=== PATIENT | female | born 1965 | race Caucasian/White ===

== ENCOUNTER 2017-11-23 06:02 | Inpatient (IN) | payer BC ==
[~2017-11-23] VITALS: Ht 160 cm; Wt 122.7 kg
[2017-11-23] MEDS ORDERED: GENTAMICIN 80 MG/2 ML ONE ×2 (06:14→08:10)
[2017-11-23] MEDS ORDERED: BUPIVACAINE/PF 0.25% ONE (06:14)
[2017-11-23] MEDS ORDERED: LIDOCAINE 1%, 50ML ONE (06:14)
[2017-11-23] MEDS ORDERED: morphine SULFATE/PF 0.5 MG/ML, 10ML ONE (06:15)
[2017-11-23] MEDS ORDERED: THROMBIN 5,000 UNIT VIAL TP ONE (06:15)
[2017-11-23] MEDS ORDERED: VANCOMYCIN 1,000 MG ONE (06:15)
[2017-11-23] MEDS ORDERED: EPINEPHRINE 1 MG/ML, 1ML ONE (06:15)
[2017-11-23] MEDS ORDERED: BACITRACIN 50,000 UNIT ONE (06:15)
[2017-11-23] MEDS ORDERED: LACTATED RINGERS 1,000 ML IV SCH (06:51)
[2017-11-23 07:00] VITALS: BP 129/78
[2017-11-23] MEDS ORDERED: metformin PO (07:00)
[2017-11-23] MEDS ORDERED: GABA600T2 PO (07:00)
[2017-11-23] MEDS ORDERED: FENO160T PO (07:00)
[2017-11-23] MEDS ORDERED: DULO30CA2 PO (07:00)
[2017-11-23] MEDS ORDERED: iron PO (07:00)
[2017-11-23] MEDS ORDERED: LIDOCAINE-MPF 1%, 2ML INFIL ONE (07:00)
[2017-11-23] MEDS ORDERED: TRAM200T17 PO (07:00)
[2017-11-23] MEDS ORDERED: nephrovite PO (07:00)
[2017-11-23] MEDS ORDERED: OXYC-302 PO (07:00)
[2017-11-23] MEDS ORDERED: GLIM4TAB2 PO (07:00)
[2017-11-23] MEDS ORDERED: FENTANYL PF 250 MCG/5ML ONE ×2 (07:10→08:44)
[2017-11-23] MEDS ORDERED: MIDAZOLAM 1 MG/ML, 2ML ONE (07:10)
[2017-11-23] MEDS ORDERED: CEFAZOLIN 1,000 MG ONE (07:59)
[2017-11-23] MEDS ORDERED: SUCCINYLCHOLINE 20 MG/ML, 10ML ONE (07:59)
[2017-11-23] MEDS ORDERED: ROCURONIUM 10 MG/ML,10ML ONE (07:59)
[2017-11-23] MEDS ORDERED: ONDANSETRON 2MG/ML, 2ML ONE (07:59)
[2017-11-23] MEDS ORDERED: PROPOFOL 10 MG/ML, 20ML ONE (07:59)
[2017-11-23] MEDS ORDERED: DEXAMETHASONE 4 MG/ML, 1ML ONE (07:59)
[2017-11-23] MEDS ORDERED: HEPARIN 1,000 UNITS/ML, 30ML ONE (08:05)
[2017-11-23] MEDS ORDERED: ALBUTEROL/IPRATROPIUM 2.5MG/0.5MG, 3 ML NPPB PRN (09:30)
[2017-11-23] MEDS ORDERED: ALBUTEROL SULFATE 2.5 MG/3 ML NPPB PRN (09:30)
[2017-11-23] MEDS ORDERED: morphine SULFATE 10 MG/ML, 1ML IV PRN (09:30)
[2017-11-23] MEDS ORDERED: HYDROcodone/APAP 7.5-325MG/15ML UDC PO PRN (09:30)
[2017-11-23] MEDS ORDERED: HYDROmorphone 1 MG/ML, 1ML IV PRN (09:30)
[2017-11-23] MEDS ORDERED: FENTANYL PF 100 MCG/2ML IV PRN (09:30)
[2017-11-23] MEDS ORDERED: hydrALAzine 20 MG/ML, 1ML IV PRN (09:30)
[2017-11-23] MEDS ORDERED: PROMETHAZINE 25 MG/ML, 1ML IV PRN (09:30)
[2017-11-23] MEDS ORDERED: ONDANSETRON 2MG/ML, 2ML IVPush PRN (09:30)
[2017-11-23] MEDS ORDERED: LABETALOL 5MG/ML, 20ML IV PRN (09:30)
[2017-11-23] MEDS ORDERED: METOCLOPRAMIDE 5 MG/ML, 2ML IV PRN (09:30)
[2017-11-23] MEDS ORDERED: MEPERIDINE/PF 25MG/0.5ML IVPush PRN (09:30)
[2017-11-23] MEDS ORDERED: FENTANYL PF 100 MCG/2ML ONE ×2 (11:19→12:40)
[2017-11-23] MEDS ORDERED: FENTANYL PF 100 MCG/2ML IM ONE (11:25)
[2017-11-23] MEDS ORDERED: HYDROmorphone 2 MG/ML, 1ML ONE (12:40)
[2017-11-23] MEDS ORDERED: OXYcodone 5 MG/5 ML ORAL.SOL UDC ONE (12:40)
[2017-11-23 14:20] VITALS: BP 110/73
[2017-11-23] MEDS ORDERED: PROMETHAZINE 25 MG SUPP PR PRN (14:30)
[2017-11-23] MEDS ORDERED: BISACODYL 10 MG SUPP PR PRN (15:00)
[2017-11-23] MEDS ORDERED: DIAZEPAM 5 MG TABLET PO PRN (15:00)
[2017-11-23] MEDS ORDERED: DIAZEPAM 5 MG/ML, 2ML IV PRN (15:00)
[2017-11-23] MEDS ORDERED: HYDROmorphone 2 MG/ML, 1ML IM PRN (15:00)
[2017-11-23] MEDS ORDERED: DIPHENHYDRAMINE 50 MG/ML, 1ML IVPush PRN (15:00)
[2017-11-23] MEDS ORDERED: DIPHENHYDRAMINE 50 MG/ML, 1ML IM PRN (15:00)
[2017-11-23] MEDS ORDERED: D5%-0.9% NACL+KCL 20MEQ 1,000 ML IV SCH (15:00)
[2017-11-23] MEDS ORDERED: MAGNESIUM HYDROXIDE 8%, 30ML UDC PO PRN (15:00)
[2017-11-23] MEDS ORDERED: DIPHENHYDRAMINE 50 MG CAPSULE PO PRN (15:00)
[2017-11-23] MEDS ORDERED: PROMETHAZINE 25 MG/ML, 1ML IM PRN (15:00)
[2017-11-23] MEDS: ACETAMINOPHEN 500 MG TABLET PO SCH ×2 (16:18→20:52)
[2017-11-23] MEDS: CEFAZOLIN PMX 1GM/50ML 50 ML IVPB SCH ×2 (16:18→23:41)
[2017-11-23] MEDS ORDERED: MORPHINE 30MG/30ML PCA.SYR IV PRN (17:30)
[2017-11-23] MEDS: OXYcodone IR 5MG TABLET PO PRN ×2 (17:49→22:30)
[2017-11-23] MEDS ORDERED: INSULIN ASPART 100 UNITS/ML, VIAL SQ-INSULIN ONE (18:00)
[2017-11-23] MEDS: NS + 20MEQ KCL 1,000 ML IV SCH (18:15)
[2017-11-23] MEDS ORDERED: INSULIN LISPRO 100 UNITS/ML, PEN SQ-INSULIN ONE (18:30)
[2017-11-23 20:05] VITALS: BP 100/58
[2017-11-23] MEDS: GABAPENTIN 300 MG CAPSULE PO SCH (20:52)
[2017-11-24 00:16] VITALS: BP 97/64
[2017-11-24] MEDS: NS + 20MEQ KCL 1,000 ML IV SCH ×3 (02:19→15:57)
[2017-11-24 05:24] VITALS: BP 101/65
[2017-11-24] MEDS: OXYcodone IR 5MG TABLET PO PRN ×2 (07:12→22:00)
[2017-11-24] MEDS: GABAPENTIN 300 MG CAPSULE PO SCH ×3 (08:00→21:21)
[2017-11-24] MEDS: CEFAZOLIN PMX 1GM/50ML 50 ML IVPB SCH ×2 (08:00→15:49)
[2017-11-24] MEDS: DULOXETINE 30 MG CAPSULE.DR PO SCH (08:00)
[2017-11-24] MEDS: SENNA/DOCUSATE TABLET PO SCH (08:01)
[2017-11-24] MEDS: ACETAMINOPHEN 500 MG TABLET PO SCH ×3 (08:01→21:21)
[2017-11-24 08:12] VITALS: BP 119/74
[2017-11-24 14:34] VITALS: BP 126/76
[2017-11-24] MEDS ORDERED: INSULIN LISPRO 100 UNITS/ML, PEN SQ-INSULIN ONE (17:00)
[2017-11-24] MEDS ORDERED: INSULIN ASPART 100 UNITS/ML, VIAL SQ-INSULIN ONE (17:00)
[2017-11-24 18:28] VITALS: BP 107/63
[2017-11-25] MEDS: CEFAZOLIN PMX 1GM/50ML 50 ML IVPB SCH ×3 (00:10→17:03)
[2017-11-25 01:25] VITALS: BP 122/77
[2017-11-25] MEDS: NS + 20MEQ KCL 1,000 ML IV SCH ×3 (02:34→18:00)
[2017-11-25] MEDS: DULOXETINE 30 MG CAPSULE.DR PO SCH (07:18)
[2017-11-25] MEDS: ACETAMINOPHEN 500 MG TABLET PO SCH ×3 (07:18→20:53)
[2017-11-25] MEDS: GABAPENTIN 300 MG CAPSULE PO SCH ×3 (07:18→20:54)
[2017-11-25] MEDS: SENNA/DOCUSATE TABLET PO SCH (07:19)
[2017-11-25] MEDS ORDERED: metFORMIN 500 MG TABLET PO SCH (08:00)
[2017-11-25 08:59] VITALS: BP 124/81
[2017-11-25] MEDS ORDERED: INSULIN LISPRO 100 UNITS/ML, PEN SQ-INSULIN ONE ×2 (12:00→22:30)
[2017-11-25 14:03] VITALS: BP 111/72
[2017-11-25] MEDS: metFORMIN 500 MG TABLET PO SCH (17:03)
[2017-11-25 20:12] VITALS: BP 121/80
[2017-11-25] MEDS ORDERED: FENOFIBRATE 145 MG TABLET PO SCH (21:00)
[2017-11-25] MEDS ORDERED: FERROUS SULFATE 325 MG TABLET PO SCH (21:00)
[2017-11-26] MEDS: CEFAZOLIN 1,000 MG in DEXTROSE 5% 50 ML IVPB SCH ×4 (00:37→16:00)
[2017-11-26 01:51] VITALS: BP 123/68
[2017-11-26] MEDS ORDERED: GABAPENTIN 300 MG CAPSULE PO ONE (02:00)
[2017-11-26] MEDS: NS + 20MEQ KCL 1,000 ML IV SCH ×2 (03:22→10:00)
[2017-11-26] MEDS: metFORMIN 500 MG TABLET PO SCH ×2 (07:52→16:43)
[2017-11-26] MEDS: OXYcodone IR 5MG TABLET PO PRN ×4 (07:55→16:40)
[2017-11-26 08:21] VITALS: BP 107/67
[2017-11-26] MEDS: ACETAMINOPHEN 500 MG TABLET PO SCH ×2 (08:43→16:03)
[2017-11-26] MEDS: SENNA/DOCUSATE TABLET PO SCH (08:43)
[2017-11-26] MEDS: GABAPENTIN 300 MG CAPSULE PO SCH ×2 (08:44→16:03)
[2017-11-26] MEDS: DULOXETINE 30 MG CAPSULE.DR PO SCH (08:44)
[2017-11-26] MEDS ORDERED: INSULIN LISPRO 100 UNITS/ML, PEN SQ-INSULIN ONE (11:00)
[2017-11-26] MEDS ORDERED: INSULIN LISPRO 100 UNITS/ML, PEN SQ-INSULIN SCH (11:30)
[2017-11-26 13:42] VITALS: BP 112/75
== END 2017-11-26 16:55 | disposition home or self-care (01) | DRG 516 ==
LOC: ORIP 06:02 → 4NOR 14:10
PROVIDERS: ADMIT Orthopaedic Surgery Orthopaedic Surgery of the Spine; ATTEND Orthopaedic Surgery Orthopaedic Surgery of the Spine
PROC: 0SH304Z Insertion of Internal Fixation Device into Lumbosacral Joint, Open Approach (ICD-10-PCS; 2017-11-23)
PROC: 0SH004Z Insertion of Internal Fixation Device into Lumbar Vertebral Joint, Open Approach (ICD-10-PCS; principal; 2017-11-23 07:30)
DX: M48.061 Spinal stenosis, lumbar region without neurogenic claudication (principal); Z68.42 Body mass index [BMI] 45.0-49.9, adult; E11.42 Type 2 diabetes mellitus with diabetic polyneuropathy; M54.17 Radiculopathy, lumbosacral region; G47.33 Obstructive sleep apnea (adult) (pediatric); F32.9 Major depressive disorder, single episode, unspecified; E78.5 Hyperlipidemia, unspecified; E78.1 Pure hyperglyceridemia; E66.01 Morbid (severe) obesity due to excess calories; D50.9 Iron deficiency anemia, unspecified; Z90.710 Acquired absence of both cervix and uterus; Z87.891 Personal history of nicotine dependence; Z80.0 Family history of malignant neoplasm of digestive organs; Z80.49 Family history of malignant neoplasm of other genital organs; Z83.3 Family history of diabetes mellitus; Z82.49 Family history of ischemic heart disease and other diseases of the circulatory system; Z82.3 Family history of stroke
CPT/HCPCS: 36415; 72100; 82962; 86850; 86900; 86923; C1713; J0171; J0690; J1100; J1644; J1815; J2250; J2270; J2274; J2405; J2704; J3010; J3370; J3480; J3490; C1751; C1762; J0330; J1580; J7120